=== PATIENT | male | born 1985 | race Caucasian/White ===

== ENCOUNTER 2017-12-08 10:35 | Emergency (ER) | payer BC, OTHER ==
--- NOTE | 2017-12-08 11:24 | PDOC ---
History of Present Illness - General Chief Complaint: Bite Stated Complaint: DOG BITE Time Seen by Provider: 12/08/17 11:15 History Source: Patient Exam Limitations: No Limitations - History of Present Illness Initial Comments: This is a 32 YOM with unremarkable PMH who presents with dog bite on 11/25/17 in [facility] which did not break the skin. He was attempting to feed the feral dog an empanada when the dog accidentally bit his left middle finger. The dog felt bad and let go of his finger and continued to eat the empanada. The bite did not actually break the skin, but the patient expresses concern that at the time that finger had a small skin tear from a hangnail and there may have been an exposure to the dog's saliva. The patient denies any knowledge of ever having had a rabies vaccination. His last tetanus booster was in 2013 and was a child he received the full immunization schedule against tetanus. The patient states that he has had a recent mild headache but he believes it may be d/t the flu or a URI because he has had exposure to individuals with these symptoms lately. He otherwise denies any symptoms. Past History - Past Medical History Allergies/Adverse Reactions: Allergies Allergy/AdvReac Type Severity Reaction Status Date / Time Anesthetics - Mara Type- Allergy Severe Verified 12/08/17 12:03 Parabens [Anesthetics - Mara Type] Anesthetics - Amide Type Allergy Verified 12/08/17 12:03 Home Medications: Ambulatory Orders No Home Medications 0 dose .ROUTE UTDICT 03/31/14 - Suicide/Smoking/Psychosocial Hx Smoking History: Former smoker Have you smoked in the past 12 months: Yes Number of Cigarettes Smoked Daily: 0 'Breaking Loose' booklet given: 03/31/14 Hx Alcohol Use: No Drug/Substance Use Hx: No Substance Use Type: None Review of Systems - Review of Systems Able to Perform ROS?: Yes Constitutional: No: Chills, Fever, Unexplained wgt Loss HEENTM: No: Nose Congestion, Throat Pain Respiratory: No: Cough, Shortness of Breath Cardiac (ROS): No: Chest Pain, Palpitations ABD/GI: No: Constipated, Diarrhea, Nausea, Vomiting : No: Burning, Dysuria Musculoskeletal: No: Back Pain, Neck Pain Integumentary: No: Bruising, Lesions, Rash Neurological: Yes: Headache. No: Numbness, Tingling, Weakness, Dizziness Endocrine: No: Unexplained Weight Gain, Unexplained Weight Loss *Physical Exam - Physical Exam General Appearance: Yes: Nourished. No: Apparent Distress HEENT: positive: EOMI, Normal Voice, Hearing Grossly Normal. negative: Scleral Icterus (R), Scleral Icterus (L), Nasal Congestion Neck: positive: Trachea midline, Supple. negative: Tender, Rigid Respiratory/Chest: positive: Lungs Clear, Normal Breath Sounds. negative: Respiratory Distress, Crackles, Rhonchi, Stridor, Wheezing Cardiovascular: positive: Regular Rhythm, Regular Rate. negative: Murmur Gastrointestinal/Abdominal: positive: Normal Bowel Sounds, Soft. negative: Tender, Organomegaly, Pulsatile Mass, Guarding Musculoskeletal: positive: Normal Inspection. negative: Decreased Range of Motion, Vertebral Tenderness Extremity: positive: Normal Capillary Refill, Normal Inspection, Normal Range of Motion. negative: Tender, Cyanosis Integumentary: positive: Normal Color, Dry, Warm, Other (left middle finger with small healed hangnail to ulnar side of fingernail, no abrasions or skin tears or bite smith to the finger). negative: Erythema, Rash, Bruising Neurologic: positive: umbrella tipper hand II-XII NML intact (grossly), Fully Oriented, Alert, Normal Mood/Affect, Normal Response, Motor Strength 5/5, Other (no tremor, no torticollis, no abnormal movements) Medical Decision Making - Medical Decision Making 12/08/17 11:58 32 YOM presents 13 days s/p bit by a feral dog in [facility] without a break in the skin but with tiny skin tear to same finger prior to the incident. VS are within normal limits. Exam notable for 1mm x 0.5 mm healing skin tear from hangnail to ulnar side of left middle finger, no bite smith or skin changes. The patient's tetanus status is UTD but he does not recall ever having a rabies vaccine. 12/08/17 13:28 Rabies IG and vaccine ordered. He will need rabies vaccine on 12/11/17, 12/15/17, and 12/22/17. 12/08/17 13:41 The patient is appropriate for discharge home with close followup. They are comfortable with this plan and will follow up with their PCP in 1-3 days. They will go to their PCP or return to the ER for remaining rabies vaccine course. Today is day 0, and the patient will need to have rabies vaccines on day 3, 7, and 14. Return precautions are discussed. *DC/Admit/Observation/Transfer Diagnosis at time of Disposition: Rabies, need for prophylactic vaccination against Dog bite of finger Qualifiers: Encounter type: initial encounter Qualified Code(s): S61.259A - Open bite of unspecified finger without damage to nail, initial encounter - Discharge Dispostion Disposition: HOME Condition at time of disposition: Stable Admit: No - Referrals - Patient Instructions Printed Discharge Instructions: DI for Animal Bites, DI for Rabies Vaccine Additional Instructions: You were seen in the ER for a dog bite with possible rabies exposure. We gave you the recommended rabies immune globulin injection, as well as your first of four rabies vaccines. You will need to return to the ER or follow up with your PCP on the following dates for the remaining doses in your rabies vaccine course , which is recommended after rabies exposure: 12/11/17, 12/15/17, and 12/22/17. Please follow up with your PCP in 1-3 days. You can return to the ER at any time for any new or worsening symptoms. - Post Discharge Activity Forms/Work/School Notes: Rabies Vaccination F/U Anaid.
[2017-12-08 12:11] VITALS: BP 105/67; PULSE 78; TEMP 98.3; BMI 23.1
[2017-12-08] MEDS ORDERED: RABIES VACCINE (PCEC)/PF 2.5 UNIT/VIAL IM ONE (13:03)
[2017-12-08] MEDS ORDERED: RABIES IMMUNE GLOBULIN 300 UNITS/2 ML VIAL IM ONE (13:03)
--- NOTE | 2017-12-08 13:32 | PDOC ---
Attending Attestation - Resident Resident Name: Romano,Amy - ED Attending Attestation I have performed the following: I have examined & evaluated the patient, The case was reviewed & discussed with the resident, I agree w/resident's findings & plan, Exceptions are as noted - HPI HPI: 12/09/17 00:56 32yo M presents to ED after exposure to feral dog saliva over broken skin on 11/25. - Physicial Exam PE: 12/09/17 00:57 agree with resident exam - Medical Decision Making 12/09/17 00:57 Given possible exposure to rabies, will treat with immunoglobulin and vaccine # 1 today. Pt to return to ED for remainder of vaccine series. Tdap up to date.
[2017-12-08] MEDS ORDERED: RABIES IMMUNE GLOBULIN 300 UNITS/2 ML VIAL ONE (14:14)
== END 2017-12-08 14:52 | disposition home or self-care (01) ==
LOC: FER 10:35
PROC: 3E0234Z Introduction of Serum, Toxoid and Vaccine into Muscle, Percutaneous Approach (ICD-10-PCS; principal; 2017-12-08)
DX: S61.253A Open bite of left middle finger without damage to nail, initial encounter (principal); W54.0XXA Bitten by dog, initial encounter; Y93.89 Activity, other specified; Y92.410 Unspecified street and highway as the place of occurrence of the external cause; Z87.891 Personal history of nicotine dependence
CPT/HCPCS: 90375; 90675; 99281-25

== ENCOUNTER 2017-12-11 12:14 | Emergency (ER) | payer OTHER ==
[2017-12-11] MEDS ORDERED: RABIES VACCINE (PCEC)/PF 2.5 UNIT/VIAL IM ONE (12:24)
[2017-12-11 12:28] VITALS: BP 122/80; PULSE 67; TEMP 98.7; BMI 23.1
--- NOTE | 2017-12-11 12:29 | PDOC ---
History of Present Illness - General Chief Complaint: Revisit,Rabies Injection Stated Complaint: RABIES VACCINE Time Seen by Provider: 12/11/17 12:18 History Source: Patient Exam Limitations: No Limitations - History of Present Illness Initial Comments: 12/11/17 12:24 32 y/o male exposed to possible rabies to hand while feeding a dog in [facility]. Here for second rabies shot. Doing well. No infection or redness to hand. Past History - Past Medical History Allergies/Adverse Reactions: Allergies Allergy/AdvReac Type Severity Reaction Status Date / Time Anesthetics - Mara Type- Allergy Severe Verified 12/08/17 12:03 Parabens [Anesthetics - Mara Type] Anesthetics - Amide Type Allergy Verified 12/08/17 12:03 Home Medications: Ambulatory Orders No Home Medications 0 dose .ROUTE UTDICT 03/31/14 COPD: No - Suicide/Smoking/Psychosocial Hx Smoking History: Former smoker Have you smoked in the past 12 months: Yes Number of Cigarettes Smoked Daily: 0 If you are a former smoker, when did you quit?: 2015 'Breaking Loose' booklet given: 03/31/14 Hx Alcohol Use: No Drug/Substance Use Hx: No Substance Use Type: None Review of Systems - Review of Systems Able to Perform ROS?: Yes Is the patient limited Yi proficient: No Constitutional: No: Chills, Fever Respiratory: No: Cough, Shortness of Breath Musculoskeletal: No: Joint Pain All Other Systems: Reviewed and Negative *Physical Exam - Physical Exam General Appearance: Yes: Nourished, Appropriately Dressed. No: Apparent Distress Respiratory/Chest: positive: Lungs Clear, Normal Breath Sounds Cardiovascular: positive: Regular Rhythm, Regular Rate, S1, S2 Vascular Pulses: Femoral (R): 4+, Femoral (L): 4+, Carotid (R): 4+, Carotid (L) : 4+, Dorsalis-Pedis (R): 4+, Doralis-Pedis (L): 4+ Integumentary: positive: Normal Color, Dry, Warm Progress Note - Progress Note Progress Note: Pt is her for second rabies shot Return on day 7 (December 10) for 3rd and 1 week later for your 4th *DC/Admit/Observation/Transfer Diagnosis at time of Disposition: Rabies, need for prophylactic vaccination against - Discharge Dispostion Disposition: HOME Condition at time of disposition: Good Admit: No - Referrals - Patient Instructions Printed Discharge Instructions: DI for Rabies Vaccine Additional Instructions: Continue current treatment for rabies series Next shot on December 15 If worsen return to ER - Post Discharge Activity
== END 2017-12-11 12:41 | disposition home or self-care (01) ==
LOC: FER 12:14
PROC: 3E0234Z Introduction of Serum, Toxoid and Vaccine into Muscle, Percutaneous Approach (ICD-10-PCS; principal; 2017-12-11)
DX: Z20.3 Contact with and (suspected) exposure to rabies (principal); Z23 Encounter for immunization; W54.0XXA Bitten by dog, initial encounter; Y93.89 Activity, other specified; Y92.9 Unspecified place or not applicable; Z87.891 Personal history of nicotine dependence
CPT/HCPCS: 90675; 99281-25

== ENCOUNTER 2017-12-15 09:08 | Emergency (ER) | payer OTHER ==
[2017-12-15 09:15] VITALS: BP 133/63; PULSE 60; TEMP 98.9; BMI 23.7
[2017-12-15] MEDS ORDERED: RABIES VACCINE (PCEC)/PF 2.5 UNIT/VIAL IM ONE (09:17)
--- NOTE | 2017-12-15 09:21 | PDOC ---
History of Present Illness - General Chief Complaint: Revisit,Rabies Injection Stated Complaint: RABIES VACCINE Time Seen by Provider: 12/15/17 09:11 - History of Present Illness Initial Comments: 12/15/17 09:17 32 M with no PMH presenting for 3rd rabies vaccine after exposure to feral dog. Pt denies any changes since last visit. States that he was exposed to the dog's saliva when he was feeding it. States that the dog did not break skin, but he had a hangnail on his finger. No pain, swelling, redness to finger where he was exposed to dog saliva. Denies any F/C. States he feels well. Past History - Past Medical History Allergies/Adverse Reactions: Allergies Allergy/AdvReac Type Severity Reaction Status Date / Time Anesthetics - Mara Type- Allergy Severe Verified 12/15/17 09:09 Parabens [Anesthetics - Mara Type] Anesthetics - Amide Type Allergy Verified 12/15/17 09:09 Home Medications: Ambulatory Orders No Home Medications 0 dose .ROUTE UTDICT 03/31/14 COPD: No Other medical history: MALIGNANT HYPERTHERMIA - Suicide/Smoking/Psychosocial Hx Smoking History: Former smoker Have you smoked in the past 12 months: No Number of Cigarettes Smoked Daily: 0 If you are a former smoker, when did you quit?: 2016 Information on smoking cessation initiated: No 'Breaking Loose' booklet given: 03/31/14 Hx Alcohol Use: No Drug/Substance Use Hx: No Substance Use Type: None Review of Systems - Review of Systems Comments:: 12/15/17 09:18 "GENERAL/CONSTITUTIONAL: No fever or chills. No weakness. HEAD, EYES, EARS, NOSE AND THROAT: No change in vision. No ear pain or discharge. No sore throat. CARDIOVASCULAR: No chest pain or shortness of breath. RESPIRATORY: No cough, wheezing, or hemoptysis. GASTROINTESTINAL: No nausea, vomiting, diarrhea or constipation. GENITOURINARY: No dysuria, frequency, or change in urination. MUSCULOSKELETAL: No joint or muscle swelling or pain. No neck or back pain. SKIN: No rash NEUROLOGIC: No headache, vertigo, loss of consciousness, or change in strength/ sensation. ENDOCRINE: No increased thirst. No abnormal weight change. HEMATOLOGIC/LYMPHATIC: No anemia, easy bleeding, or history of blood clots. ALLERGIC/IMMUNOLOGIC: No hives or skin allergy. " *Physical Exam - Vital Signs Last Vital Signs Temp Pulse Resp BP Pulse Ox 98.9 F 60 18 133/63 100 12/15/17 09:08 12/15/17 09:08 12/15/17 09:08 12/15/17 09:08 12/15/17 09:08 - Physical Exam Comments: 12/15/17 09:19 "GENERAL: Awake, alert, and fully oriented, in no acute distress HEAD: No signs of trauma EYES: PERRLA, EOMI, sclera anicteric, conjunctiva clear ENT: Auricles normal inspection, hearing grossly normal, nares patent, oropharynx clear without exudates. Moist mucosa NECK: Nontender, no stepoffs, Normal ROM, supple, no lymphadenopathy, JVD, or masses LUNGS: Breath sounds equal, clear to auscultation bilaterally. No wheezes, and no crackles HEART: Regular rate and rhythm, normal S1 and S2, no murmurs, rubs or gallops ABDOMEN: Soft, nontender, normoactive bowel sounds. No guarding, no rebound. No masses EXTREMITIES: Normal range of motion, no edema. No clubbing or cyanosis. No cords, erythema, or tenderness NEUROLOGICAL: Cranial nerves II through XII intact. 5/5 strength and sensation in all extremities, Normal speech, normal gait, normal cerebellar function SKIN: Warm, Dry, normal turgor, no rashes or lesions noted. " Medical Decision Making - Medical Decision Making 12/15/17 09:19 32 M presenting for 3rd rabies vaccines, on schedule. Pt appears well with no complaints. No signs of local or systemic infection. - Rabies vaccine IM administered - Return in 1 week for final vaccine Pt is well appearing, with normal vitals. Clinically stable for DC at this time. I discussed the physical exam findings, ancillary test results and final diagnoses with the patient. I answered all of the patient's questions. The patient was satisfied with the care received and felt comfortable with the discharge plan and treatment plan. The patient agrees to follow up with the primary care physician within 24-72 hours. *DC/Admit/Observation/Transfer Diagnosis at time of Disposition: Rabies, need for prophylactic vaccination against - Discharge Dispostion Disposition: HOME Condition at time of disposition: Stable - Referrals Referrals: Jabier Reyes MD [Staff Physician] - - Patient Instructions Printed Discharge Instructions: DI for Rabies Vaccine Additional Instructions: Return to the ER in exactly 1 week (12/22/17) for your 4th and final rabies vaccine. Call the number provided to make an appointment with a primary care doctor for a follow up within 1-2 weeks. If you experience any fevers, chills, or any other concerning symptoms, return to the ER immediately. - Post Discharge Activity - Attestations Physician Attestion: 12/15/17 09:21 I, Dr. Remi Cabrera MD, attest that this document has been prepared under my direction and personally reviewed by me in its entirety. I further attest, that it accurately reflects all work, treatment, procedures and medical decision -making performed by me.
== END 2017-12-15 09:44 | disposition home or self-care (01) ==
LOC: FER 09:08
PROC: 3E0234Z Introduction of Serum, Toxoid and Vaccine into Muscle, Percutaneous Approach (ICD-10-PCS; principal; 2017-12-15)
DX: Z23 Encounter for immunization (principal); Z20.3 Contact with and (suspected) exposure to rabies
CPT/HCPCS: 90675; 99282-25

== ENCOUNTER 2017-12-22 08:43 | Emergency (ER) | payer OTHER ==
[2017-12-22] MEDS ORDERED: RABIES VACCINE (PCEC)/PF 2.5 UNIT/VIAL IM ONE (08:48)
[2017-12-22 08:52] VITALS: BP 114/79; BMI 23.7
--- NOTE | 2017-12-22 08:52 | PDOC ---
History of Present Illness - General Chief Complaint: Revisit,Rabies Injection Stated Complaint: RABIES INJECTION Time Seen by Provider: 12/22/17 08:47 - History of Present Illness Initial Comments: 12/22/17 08:48 32 M with no PMH presenting for 4th rabies vaccine after exposure to feral dog. Pt denies any changes since last visit. Denies F/C. Denies pain or swelling in his finger where he was exposed to dog saliva. Denies any complaints at this time. Past History - Past Medical History Allergies/Adverse Reactions: Allergies Allergy/AdvReac Type Severity Reaction Status Date / Time Anesthetics - Mara Type- Allergy Severe Verified 12/22/17 08:44 Parabens [Anesthetics - Mara Type] Anesthetics - Amide Type Allergy Verified 12/22/17 08:44 Home Medications: Ambulatory Orders No Home Medications 0 dose .ROUTE UTDICT 03/31/14 COPD: No - Suicide/Smoking/Psychosocial Hx Smoking History: Former smoker Have you smoked in the past 12 months: No Number of Cigarettes Smoked Daily: 0 If you are a former smoker, when did you quit?: 2016 'Breaking Loose' booklet given: 03/31/14 Hx Alcohol Use: No Drug/Substance Use Hx: No Substance Use Type: None Review of Systems - Review of Systems Comments:: 12/22/17 08:49 "GENERAL/CONSTITUTIONAL: No fever or chills. No weakness. HEAD, EYES, EARS, NOSE AND THROAT: No change in vision. No ear pain or discharge. No sore throat. CARDIOVASCULAR: No chest pain or shortness of breath. RESPIRATORY: No cough, wheezing, or hemoptysis. GASTROINTESTINAL: No nausea, vomiting, diarrhea or constipation. GENITOURINARY: No dysuria, frequency, or change in urination. MUSCULOSKELETAL: No joint or muscle swelling or pain. No neck or back pain. SKIN: No rash NEUROLOGIC: No headache, vertigo, loss of consciousness, or change in strength/ sensation. ENDOCRINE: No increased thirst. No abnormal weight change. HEMATOLOGIC/LYMPHATIC: No anemia, easy bleeding, or history of blood clots. ALLERGIC/IMMUNOLOGIC: No hives or skin allergy. " *Physical Exam - Physical Exam Comments: 12/22/17 08:49 "GENERAL: Awake, alert, and fully oriented, in no acute distress HEAD: No signs of trauma EYES: PERRLA, EOMI, sclera anicteric, conjunctiva clear ENT: Auricles normal inspection, hearing grossly normal, nares patent, oropharynx clear without exudates. Moist mucosa NECK: Nontender, no stepoffs, Normal ROM, supple, no lymphadenopathy, JVD, or masses LUNGS: Breath sounds equal, clear to auscultation bilaterally. No wheezes, and no crackles HEART: Regular rate and rhythm, normal S1 and S2, no murmurs, rubs or gallops ABDOMEN: Soft, nontender, normoactive bowel sounds. No guarding, no rebound. No masses EXTREMITIES: Normal range of motion, no edema. No clubbing or cyanosis. No cords, erythema, or tenderness NEUROLOGICAL: Cranial nerves II through XII intact. 5/5 strength and sensation in all extremities, Normal speech, normal gait, normal cerebellar function SKIN: Warm, Dry, normal turgor, no rashes or lesions noted. " Medical Decision Making - Medical Decision Making 12/22/17 08:49 32 M here for 4th and final rabies vaccination. No complaints at this time. Exam normal, vitals normal. - Rabies vaccine IM *DC/Admit/Observation/Transfer Diagnosis at time of Disposition: Rabies, need for prophylactic vaccination against - Discharge Dispostion Disposition: HOME - Referrals - Patient Instructions Printed Discharge Instructions: DI for Rabies Vaccine Additional Instructions: You have completed your rabies vaccinations. Follow up with your primary doctor in 1-2 weeks for a re-evaluation. If you experience any fevers, chills, or any other concerning symptoms, return to the ER immediately. - Post Discharge Activity - Attestations Physician Attestion: 12/22/17 08:52 I, Dr. Remi Cabrera MD, attest that this document has been prepared under my direction and personally reviewed by me in its entirety. I further attest, that it accurately reflects all work, treatment, procedures and medical decision -making performed by me.
[2017-12-22 08:53] VITALS: PULSE 70; TEMP 97.9
== END 2017-12-22 09:07 | disposition home or self-care (01) ==
LOC: FER 08:43
PROC: 3E0234Z Introduction of Serum, Toxoid and Vaccine into Muscle, Percutaneous Approach (ICD-10-PCS; principal; 2017-12-22)
DX: Z23 Encounter for immunization (principal); Z20.3 Contact with and (suspected) exposure to rabies
CPT/HCPCS: 90675; 99281-25